=== PATIENT | female | born 1980 | race African-American/Black ===

== ENCOUNTER 2023-10-03 21:36 | Emergency (ER) | payer MEDICAID ==
[~2023-10-03] VITALS: Ht 165.1 cm; Wt 82.0 kg
[2023-10-03 21:57] VITALS: O2SAT 99
[2023-10-03] MEDS: ACETAMINOPHEN 325MG TABLET PO ONE (22:23)
[2023-10-03] MEDS: LIDOCAINE 5% PATCH TOP ONE (22:24)
[2023-10-04] MEDS ORDERED: ACET-2708 MT (00:18)
[2023-10-04 00:34] VITALS: BP 195/112; PULSE 81; RESP 16; TEMP 98.3
== END 2023-10-04 00:42 | disposition home or self-care (01) ==
LOC: ER 21:36
DX: S60.222A Contusion of left hand, initial encounter (principal); S60.221A Contusion of right hand, initial encounter; V49.49XA Driver injured in collision with other motor vehicles in traffic accident, initial encounter; Y93.89 Activity, other specified; Y92.89 Other specified places as the place of occurrence of the external cause; Y99.8 Other external cause status
CPT/HCPCS: 73030; 73130; 99284